=== PATIENT | female | born 1990 | race Caucasian/White ===

== ENCOUNTER → 2024-01-20 07:31 | Outpatient (REF) | payer BC, SELFPAY | LOC: RAD 07:31 | PROVIDERS: ATTENDING PHYSICIAN Student in an Organized Health Care Education/Training Program | DX: R79.89 Other specified abnormal findings of blood chemistry (principal) | CPT/HCPCS: 76536 ==

== ENCOUNTER → 2024-02-20 08:09 | Outpatient (REF) | payer BC, SELFPAY ==
[2024-02-20 09:39] LABS: TSH Reflex To Free T4 2.13 uIU/ml (0.47-4.68)
== END ==
LOC: REG 08:09
PROVIDERS: ATTENDING PHYSICIAN Student in an Organized Health Care Education/Training Program
DX: R79.89 Other specified abnormal findings of blood chemistry (principal)
CPT/HCPCS: 36415; 84443

== ENCOUNTER → 2024-11-19 08:55 | Outpatient (REF) | payer BC, SELFPAY ==
[2024-11-22 08:20] LABS: HPV, High Risk Not Detected; HPV, High Risk Source Cervical
== END ==
LOC: CPAP 08:55
PROVIDERS: ATTENDING PHYSICIAN Nurse Practitioner Adult Health
DX: Z01.419 Encounter for gynecological examination (general) (routine) without abnormal findings (principal)
CPT/HCPCS: 87624

== ENCOUNTER → 2024-11-27 07:17 | Outpatient (REF) | payer BC, SELFPAY ==
[2024-11-27 08:43] LABS: Free T4 1.03 ng/dl (0.78-2.19)
[2024-11-27 08:56] LABS: TSH 8.32 uIU/ml (0.47-4.68)
== END ==
LOC: REG 07:17
PROVIDERS: ATTENDING PHYSICIAN Family Medicine
DX: E03.9 Hypothyroidism, unspecified (principal)
CPT/HCPCS: 36415; 84439; 84443

== ENCOUNTER → 2025-02-12 15:07 | Outpatient (REF) | payer BC, SELFPAY ==
[2025-02-12 16:08] LABS: % Basophils 0.5 % (0-2); % Eosinophils 2.3 % (0-6); % Immature Granulocytes 0.4 % (0-0.5); % Lymphocytes 23.8 % (20.5-51.1); % Monocytes 8.3 % (1.7-9.3); % Neutrophils 64.7 % (42.2-75.2); Absolute Eosinophils 0.2 10^3/uL (0-0.7); Absolute Lymphocytes 1.8 10^3/uL (1.2-3.4); Absolute Monocytes 0.6 10^3/uL (0.1-0.6); Hematocrit 39.4 % (37.0-47.0); Hemoglobin 13.5 g/dL (12.0-16.0); Mean Corp Hgb Conc. 34.3 g/dL (33.0-37.0); Mean Corpuscular Hgb 29.3 pg (27.0-31.0); Mean Corpuscular Volume 85.5 fL (81.0-99.0); Mean Platelet Volume 9.5 fL (7.4-10.4); Nucleated Red Blood Cells % 0 %; Platelet Count 275 10^3/uL (130-400); Red Blood Cell Count 4.61 10^6/uL (4.20-5.40); Red Cell Dist. Width 12.9 % (11.5-14.5); White Blood Cell Count 7.7 10^3/uL (4.8-10.8)
[2025-02-12 16:33] LABS: Urine Albumin Negative (Neg - Trace); Urine Bilirubin Negative (Negative); Urine Character Clear (Clear); Urine Color Yellow; Urine Glucose Negative (Negative); Urine Ketone Negative (Negative); Urine Leukocyte 1+ (Negative); Urine Nitrite Negative (Negative); Urine Occult Blood Negative (Negative); Urine Specific Gravity 1.025 (<1.030); Urine Urobilinogen 1+ (Neg - 1+)
[2025-02-12 16:43] LABS: Free T4 1.23 ng/dl (0.78-2.19)
[2025-02-12 16:48] LABS: Rubella Positive
[2025-02-12 16:57] LABS: Hepatitis B Surface Antigen Negative (Negative); TSH 4.24 uIU/ml (0.47-4.68)
[2025-02-12 17:06] LABS: HIV Combo Negative (Negative)
[2025-02-12 17:15] LABS: Hepatitis B Core Ab, Total Negative (Negative); Hepatitis B Surface Antibody Positive; Hepatitis C Antibody Negative (Negative)
[2025-02-12 17:24] LABS: Urine Mucus Few; Urine Squamous Cell 21-25 /LPF (Few)
[2025-02-12 17:25] LABS: Urine Bacteria Many (Negative); Urine Red Blood Cell 0-2 /HPF (0-2)
[2025-02-13 09:26] LABS: Glycohemoglobin (HgbA1c) 4.8 % (4.0-5.6)
== END ==
LOC: REG 15:07
PROVIDERS: ATTENDING PHYSICIAN Nurse Practitioner Family; FAMILY PHYSICIAN Family Medicine
DX: E03.9 Hypothyroidism, unspecified (principal); Z32.01 Encounter for pregnancy test, result positive
CPT/HCPCS: 36415; 81003; 81015; 83036; 84439; 84443; 84702; 85025; 86704; 86706; 86762; 86780; 86803; 86850; 86900; 86901; 87086; 87340; 87389

== ENCOUNTER → 2025-03-25 07:58 | Outpatient (REF) | payer BC, SELFPAY | LOC: PNTC 07:58 | PROVIDERS: ATTENDING PHYSICIAN Obstetrics & Gynecology | DX: Z36.0 Encounter for antenatal screening for chromosomal anomalies (principal) | CPT/HCPCS: 36415; 81420 ==

== ENCOUNTER → 2025-03-30 07:33 | Outpatient (REF) | payer BC, SELFPAY | LOC: PNTC 07:33 | PROVIDERS: ATTENDING PHYSICIAN Obstetrics & Gynecology | DX: Z36.0 Encounter for antenatal screening for chromosomal anomalies (principal); Z36.82 Encounter for antenatal screening for nuchal translucency | CPT/HCPCS: 76801; 76813 ==

== ENCOUNTER → 2025-04-22 07:22 | Outpatient (REF) | payer BC, SELFPAY | LOC: PNTC 07:22 | PROVIDERS: ATTENDING PHYSICIAN Obstetrics & Gynecology | DX: O99.210 Obesity complicating pregnancy, unspecified trimester (principal) | CPT/HCPCS: 76805 ==

== ENCOUNTER → 2025-05-24 15:59 | Outpatient (REF) | payer BC, SELFPAY | LOC: PNTC 15:59 | PROVIDERS: ATTENDING PHYSICIAN Obstetrics & Gynecology | DX: O99.210 Obesity complicating pregnancy, unspecified trimester (principal) | CPT/HCPCS: 76811; 76817 ==

== ENCOUNTER → 2025-06-11 08:01 | Outpatient (REF) | payer BC, SELFPAY ==
[2025-06-11 10:38] LABS: 1 Hour after 50gm 121 mg/dl
[2025-06-13 17:22] LABS: AFP Multiple of Median (MoM) 0.64; Dating Ultrasound; Family Neural Tube Defect Hx No; Gestational Age Calc/Collectio 23 wks, 3 days; Patient's AFP Concentration 49 ng/mL
== END ==
LOC: REG 08:01
PROVIDERS: Nurse Practitioner Family; Obstetrics & Gynecology; ATTENDING PHYSICIAN Student in an Organized Health Care Education/Training Program; FAMILY PHYSICIAN Family Medicine
DX: Z34.93 Encounter for supervision of normal pregnancy, unspecified, third trimester (principal)
CPT/HCPCS: 36415; 82105; 82950; 84439; 84443

== ENCOUNTER → 2025-06-21 13:26 | Outpatient (REF) | payer BC, SELFPAY | LOC: PNTC 13:26 | PROVIDERS: ATTENDING PHYSICIAN Obstetrics & Gynecology | DX: O99.210 Obesity complicating pregnancy, unspecified trimester (principal) | CPT/HCPCS: 76816 ==

== ENCOUNTER → 2025-07-19 15:30 | Outpatient (REF) | payer BC, SELFPAY | LOC: PNTC 15:30 | PROVIDERS: ATTENDING PHYSICIAN Obstetrics & Gynecology | DX: O99.210 Obesity complicating pregnancy, unspecified trimester (principal) | CPT/HCPCS: 76816 ==

== ENCOUNTER → 2025-07-21 07:52 | Outpatient (REF) | payer BC, SELFPAY ==
[2025-07-21 09:38] LABS: Hematocrit 35.8 % (37.0-47.0); Hemoglobin 11.9 g/dL (12.0-16.0); Mean Corp Hgb Conc. 33.2 g/dL (33.0-37.0); Mean Corpuscular Volume 87.5 fL (81.0-99.0); Nucleated Red Blood Cells % 0 %; Platelet Count 195 10^3/uL (130-400); Red Cell Dist. Width 13.4 % (11.5-14.5)
[2025-07-21 10:09] LABS: 1 Hour after 50gm 122 mg/dl
[2025-07-23 12:51] LABS: Syphilis/T. pallidum Ab Reflex Negative (Negative)
== END ==
LOC: REG 07:52
PROVIDERS: ATTENDING PHYSICIAN Obstetrics & Gynecology; FAMILY PHYSICIAN Family Medicine
DX: Z34.93 Encounter for supervision of normal pregnancy, unspecified, third trimester (principal)
CPT/HCPCS: 36415; 82950; 85025; 86780

== ENCOUNTER → 2025-08-23 16:10 | Outpatient (REF) | payer BC, SELFPAY | LOC: PNTC 16:10 | PROVIDERS: ATTENDING PHYSICIAN Obstetrics & Gynecology | DX: O99.210 Obesity complicating pregnancy, unspecified trimester (principal); O09.529 Supervision of elderly multigravida, unspecified trimester | CPT/HCPCS: 76816 ==

== ENCOUNTER → 2025-08-30 15:25 | Outpatient (REF) | payer BC, SELFPAY | LOC: PNTC 15:25 | PROVIDERS: ATTENDING PHYSICIAN Student in an Organized Health Care Education/Training Program | DX: O99.210 Obesity complicating pregnancy, unspecified trimester (principal) | CPT/HCPCS: 59025; 76815 ==

== ENCOUNTER → 2025-09-03 09:59 | Outpatient (REF) | payer BC, OTHER, SELFPAY | LOC: CLAB 09:59 | PROVIDERS: ATTENDING PHYSICIAN Obstetrics & Gynecology | DX: Z36.85 Encounter for antenatal screening for Streptococcus B (principal); Z34.90 Encounter for supervision of normal pregnancy, unspecified, unspecified trimester | CPT/HCPCS: 87070 ==

== ENCOUNTER → 2025-09-06 08:04 | Outpatient (REF) | payer BC, SELFPAY | LOC: PNTC 08:04 | PROVIDERS: ATTENDING PHYSICIAN Obstetrics & Gynecology | DX: O99.210 Obesity complicating pregnancy, unspecified trimester (principal) | CPT/HCPCS: 59025; 76815 ==

== ENCOUNTER → 2025-09-13 08:00 | Outpatient (REF) | payer BC, SELFPAY | LOC: PNTC 08:00 | PROVIDERS: ATTENDING PHYSICIAN Obstetrics & Gynecology | DX: O99.210 Obesity complicating pregnancy, unspecified trimester (principal) | CPT/HCPCS: 59025; 76815 ==

== ENCOUNTER → 2025-09-20 15:59 | Outpatient (REF) | payer BC, SELFPAY | LOC: PNTC 15:59 | PROVIDERS: ATTENDING PHYSICIAN Obstetrics & Gynecology | DX: O99.213 Obesity complicating pregnancy, third trimester (principal); E03.9 Hypothyroidism, unspecified | CPT/HCPCS: 36415; 59025; 76816 ==

== ENCOUNTER → 2025-09-27 16:01 | Outpatient (REF) | payer BC, SELFPAY | LOC: PNTC 16:01 | PROVIDERS: ATTENDING PHYSICIAN Obstetrics & Gynecology | DX: O99.213 Obesity complicating pregnancy, third trimester (principal) | CPT/HCPCS: 59025; 76815 ==

== ENCOUNTER 2025-09-30 07:22 | Inpatient (IN) | payer BC, SELFPAY ==
[2025-09-30 07:30] VITALS: BP 119/79; BMI 43.9
[2025-09-30] MEDS: LR 1000 IV ×2 (07:45→09:23)
[2025-09-30 08:04] LABS: Hematocrit 36.5 % (37.0-47.0); Hemoglobin 11.7 g/dL (12.0-16.0); Mean Corp Hgb Conc. 32.1 g/dL (33.0-37.0); Mean Corpuscular Volume 86.1 fL (81.0-99.0); Platelet Count 214 10^3/uL (130-400); Red Cell Dist. Width 14.9 % (11.5-14.5)
[2025-09-30] MEDS: BICITRA 30 ML PO (11:21)
[2025-09-30] MEDS: TYLENOL 975 MG PO (11:21)
[2025-09-30] MEDS: ANCEF 10 IV (11:25)
[2025-09-30] MEDS: PITOCIN 30 UNITS/NSS 500 ML IV (13:57)
[2025-09-30 16:11] LABS: Cord ABG B.E. - POC -5.0 mmol/L; Cord ABG HCO3 - POC 24 mmol/L; Cord ABG pCO2 - POC 63 mmHg; Cord ABG pH - POC 7.20; Cord ABG pO2 - POC < 18 mmHg
[2025-09-30 16:11] LABS: Cord VBG B.E. - POC -2.1 mmol/L; Cord VBG HCO3 - POC 24 mmol/L; Cord VBG pCO2 - POC 47 mmHg; Cord VBG pH - POC 7.32; Cord VBG pO2 - POC < 18 mmHg
[2025-09-30] MEDS: TORADOL 15 MG IV (17:43)
[2025-09-30] MEDS: COLACE 100 MG PO (20:25)
[2025-10-01 05:02] LABS: Hematocrit 32.7 % (37.0-47.0); Hemoglobin 10.8 g/dL (12.0-16.0); Mean Corp Hgb Conc. 33.0 g/dL (33.0-37.0); Mean Corpuscular Volume 84.1 fL (81.0-99.0); Platelet Count 218 10^3/uL (130-400); Red Cell Dist. Width 14.6 % (11.5-14.5)
[2025-10-01] MEDS: TORADOL 15 MG IV ×3 (06:06→11:48)
[2025-10-01] MEDS: SYNTHROID 200 MCG PO (06:06)
[2025-10-01] MEDS: SYNTHROID 50 MCG PO (06:06)
--- NOTE | 2025-10-01 07:59 | W.PN.ANS.POP ---
Anesthesia Post Operative
- Anesthesia Post Op Note
Vital Signs Stable-See Nursing Note: Yes
Airway Patent: Yes
Adequate Pain Control: Yes
Change in Mental Status: No
Current Postoperative Nausea & Vomiting: No
Anesthesia Complications: No
General Anesthetic Recall: No
Unplanned Admission: No
Post Op Hydration Adequate: Yes
- -
Pt awake and alert, resting comfortably with no anesthesia related c/o at time of post op visit.
[2025-10-01] MEDS: COLACE 100 MG PO ×2 (08:24→20:11)
[2025-10-01] MEDS: ZYRTEC 10 MG PO (08:24)
[2025-10-01] MEDS: PRENATAL PLUS 1 TABLET PO (08:24)
[2025-10-01 11:43] LABS: Syphilis/T. pallidum Ab Reflex Negative (Negative)
[2025-10-01] MEDS: TYLENOL 650 MG PO (18:00)
[2025-10-01] MEDS: MOTRIN 600 MG PO (18:00)
[2025-10-02] MEDS: SYNTHROID 200 MCG PO (05:31)
[2025-10-02] MEDS: SYNTHROID 50 MCG PO (05:32)
[2025-10-02] MEDS: MOTRIN 600 MG PO (08:17)
[2025-10-02] MEDS: PRENATAL PLUS 1 TABLET PO (08:17)
[2025-10-02] MEDS: TYLENOL 650 MG PO (08:17)
[2025-10-02] MEDS: COLACE 100 MG PO (08:17)
[2025-10-02] MEDS: ZYRTEC 10 MG PO (08:17)
== END 2025-10-02 13:38 | disposition home or self-care (01) | DRG 788 ==
LOC: LDRP 07:22
PROVIDERS: ADMITTING PHYSICIAN Obstetrics & Gynecology; FAMILY PHYSICIAN Family Medicine
PROC: 10D00Z1 Extraction of Products of Conception, Low, Open Approach (ICD-10-PCS; 2025-09-30)
DX: O34.211 Maternal care for low transverse scar from previous cesarean delivery (principal); Z3A.39 39 weeks gestation of pregnancy; Z37.0 Single live birth; O99.214 Obesity complicating childbirth; E03.9 Hypothyroidism, unspecified; O99.284 Endocrine, nutritional and metabolic diseases complicating childbirth; Z82.49 Family history of ischemic heart disease and other diseases of the circulatory system; Z83.2 Family history of diseases of the blood and blood-forming organs and certain disorders involving the immune mechanism; Z79.890 Hormone replacement therapy
CPT/HCPCS: 36415; 85027; 86780; 86850; 86900; 86901